=== PATIENT | male | born 1955 | race Hispanic/Latino ===

== ENCOUNTER 2024-08-19 07:06 | Day surgery (SDC) | payer BC ==
--- NOTE | 2024-08-14 09:39 | EKG ---
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
[2024-08-14 10:19] LABS: BASOPHILS # (AUTO) 0.05 K/uL (0.00-0.20); BASOPHILS % (AUTO) 0.7 % (0.0-5.0); EOSINOPHILS # (AUTO) 0.15 K/uL (0.00-0.70); EOSINOPHILS % (AUTO) 2.2 % (0.0-8.0); HEMATOCRIT 44.7 % (42-54); IMMATURE GRANULOCYTE ABSOLUTE 0.04 K/uL (0-1); LYMPHOCYTES # (AUTO) 1.6 K/uL (1.0-4.8); LYMPHOCYTES % (AUTO) 23.8 % (21.0-51.0); MEAN CORPUSCULAR HEMOGLOBIN 31.7 pg (27.0-33.0); MEAN CORPUSCULAR HGB CONC 33.6 g/dL (32.0-36.0); MEAN CORPUSCULAR VOLUME 94.5 fL (79-99); MONOCYTES # (AUTO) 0.6 K/uL (0.1-1.0); MONOCYTES % (AUTO) 8.2 % (3.0-13.0); NEUTROPHILS # (AUTO) 4.3 K/uL (1.8-7.7); NEUTROPHILS % (AUTO) 64.5 % (40.0-77.0); PLATELET COUNT (AUTO) 207 K/uL (130-400); RED BLOOD CELL COUNT(AUTO) 4.73 MIL/uL (4.50-6.20); RED CELL DISTRIBUTION WIDTH 11.9 % (11.0-15.5); WHITE BLOOD COUNT (AUTO) 6.7 K/uL (4.8-10.8)
[2024-08-14 10:21] VITALS: BP 162/73; PULSE 88; RESP 14; TEMP 98.4
[2024-08-14 10:27] LABS: POTASSIUM 3.5 mmol/L (3.5-5.1)
[2024-08-14 10:28] LABS: INR 0.99 (0.85-1.15); PROTHROMBIN TIME 11.1 SEC (9.6-11.6)
[2024-08-14 10:29] LABS: PARTIAL THROMBOPLASTIN TIME 31.9 SEC (26.3-35.5)
--- NOTE | 2024-08-14 15:20 | NUR ---
report dr barone informed pt reported he was dx with small fx to lumbar area x2 on december 2023 and is receiving prolia, no expected sx pending and pt stated he is able to lay flat without any problems. ok to proceed
[2024-08-19] VITALS (8 sets, daily range): BP systolic 108–138; BP diastolic 70–81; PULSE 85–109; RESP 12–18; TEMP 97.6
[~2024-08-19] VITALS: Ht 170.2 cm; Wt 85.5 kg
[~2024-08-19 07:06] MED LIST: AMLO-257 PO; APIX5TAB PO; ATOR40TA71 PO; CALC-805 PO; DENO60DI SQ; PROP225T3 PO
[2024-08-19] MEDS: 0.9%NACL 1000ML 1,000 ML IV SCH (08:32)
[2024-08-19] MEDS ORDERED: BUPIvacaine/PF 0.25% 30ML VIAL IJ ONE (09:18)
[2024-08-19] MEDS ORDERED: ceFAZolin SODIUM 1 GM VIAL ONE (09:18)
[2024-08-19] MEDS ORDERED: LIDOCAINE HCL 1% MDV 50ML VIAL ONE (09:18)
[2024-08-19] MEDS ORDERED: MEPERIDINE-PF 50 MG/ML SYG ONE (09:47)
[2024-08-19] MEDS ORDERED: MIDAZOLAM HCL 1 MG/ML 2ML VIAL ONE ×2 (09:48→09:57)
[2024-08-19] MEDS ORDERED: IOHEXOL-350 50ML VIAL IV ONE (10:00)
[2024-08-19] MEDS ORDERED: TRAM50TA4 PO (11:18)
[2024-08-19] MEDS ORDERED: acetaMINOPHEN 500 MG TABLET PO PRN (11:30)
[2024-08-19] MEDS ORDERED: acetaMINOPHEN WITH coDEINE 1 TAB TAB PO PRN (11:30)
--- NOTE | 2024-08-19 11:35 | NUR ---
DRESSING: DRESSING TO LEFT UPPER CHEST DRY/INTACT WITH NO ACTIVE BLEEDING PRESENT. NO REDNESS/SWELLING NOTED TO SURROUNDING AREA LEFT CHEST.
--- NOTE | 2024-08-19 11:50 | NUR ---
DRESSING: DRESSING TO LEFT UPPER CHEST DRY/INTACT WITH NO ACTIVE BLEEDING PRESENT. NO REDNESS/SWELLING NOTED TO SURROUNDING AREA LEFT CHEST.
--- NOTE | 2024-08-19 12:05 | NUR ---
DRESSING: DRESSING TO LEFT CHEST REMAINS DRY/INTACT WITH NO ACTIVE BLEEDING PRESENT. NO REDNESS/SWELLING NOTED TO SURROUNDING AREA LEFT CHEST.
--- NOTE | 2024-08-19 12:20 | NUR ---
DRESSING: DRESSING TO LEFT UPPER CHEST REMAINS DRY/INTACT WITH NO ACTIVE BLEEDING PRESENT. NO REDNESS/SWELLING NOTED TO SURROUNDING AREA LEFT CHEST.
--- NOTE | 2024-08-19 12:50 | NUR ---
DRESSING: DRESSING TO LEFT UPPER CHEST REMAINS DRY/INTACT WITH NO ACTIVE BLEEDING PRESENT. NO REDNESS/SWELLING NOTED TO SURROUNDING AREA LEFT CHEST.
--- NOTE | 2024-08-19 13:20 | NUR ---
DRESSING: DRESSING TO LEFT UPPER CHEST REMAINS DRY/INTACT WITH NO ACTIVE BLEEDING PRESENT. NO REDNESS/SWELLING NOTED TO SURROUNDING AREA LEFT CHEST.
--- NOTE | 2024-08-19 13:57 | NUR ---
DRESSING: DRESSING TO LEFT UPPER CHEST REMAINED DRY/INTACT WITH NO ACTIVE BLEEDING PRESENT. NO REDNESS/SWELLING NOTED TO SURROUNDING A\AREA LEFT CHEST.
--- NOTE | 2024-08-19 14:14 | HMCIMG ---
CHEST 1VW REASON: s/p pacemaker COMPARISON: None. FINDINGS: Single view of the chest was obtained. Lungs are clear. Heart size is normal. There is no pulmonary vascular congestion. Mediastinum and bony thorax appear unremarkable. There is a bipolar pacemaker in place. There is no evidence of pneumothorax. IMPRESSION: 1. Pacemaker placement without evidence of pneumothorax.
--- NOTE | 2024-09-05 13:47 | HMCSR ---
APPROVED REPORT EXAM: LIMITED Two-dimensional and M-mode echocardiogram. INDICATION ICD: assess LVEF 2D Dimensions LVED Vol(simp.)123.0 mL LVES Vol(simp.)57.7 mL LVEF(%, simp.)53 % Left Ventricle Left ventricular cavity size is normal. There is normal left ventricular wall thickness. Left ventric le systolic function is normal. The Ejection Fraction is estimated at 53% by [employer] and appears a ccurate visually. Conclusion Limited study to evaluate LV function. Left ventricular cavity size is normal. There is normal left ventricular wall thickness. Left ventricle systolic function is normal. The Ejection Fraction is estimated at 53% by [employer] and appears accurate visually.
== END 2024-08-19 13:57 | disposition home or self-care (01) ==
LOC: DAH 07:06
PROVIDERS: ATTEND Internal Medicine Cardiovascular Disease
DX: I48.0 Paroxysmal atrial fibrillation (principal); I47.19 Other supraventricular tachycardia; I45.89 Other specified conduction disorders; I49.5 Sick sinus syndrome; I10 Essential (primary) hypertension; E78.5 Hyperlipidemia, unspecified; G47.33 Obstructive sleep apnea (adult) (pediatric); Z99.89 Dependence on other enabling machines and devices; Z79.01 Long term (current) use of anticoagulants; Z79.899 Other long term (current) drug therapy
CPT/HCPCS: 80048; 85025; 85610; 85730; 36415; 93005; 33208; 71045; 93308; C1785; C1898 ×2; J0690; J7030; J0665; J2250 ×2; J2175; J3490; Q9967; A4215; A4222; A4221; A4663; A4216; A4606; A4223 ×3; 99156; 99157